=== PATIENT | male | born 1960 | race Two or more races ===

== ENCOUNTER 2020-04-04 10:37 | Inpatient (IN) | payer OTHER ==
--- NOTE | 2020-04-04 14:19 | BHS.RME ---
Substance Use & Tx History - Substance Use History Heroin Substance amount: 10 bags Frequency of use: Daily Substance route: Inhalation (ex: sniffing or snorting) Date of Last Use: 04/03/20 Marijuana/Hashish Substance amount: 1/2 pack Frequency of use: Daily Substance route: Smoking Date of Last Use: 04/04/20 Nicotine Substance amount: 1/2 pack Frequency of use: Daily Substance route: Smoking Date of Last Use: 04/04/20 Physical/Psych/Mental Status - Behavior General Behavior: Increased activity (restlessness, agitation) Eye Contact: Normal - Cooperativeness Cooperativeness: Cooperative - Thinking Thought Processes: Tight, Logical, Goal Directed - Physical Health Problems Is patient presently having any pain?: No Does patient presently have any injuries (include location): No Does patient currently have a fever: No Is patient : No COWS - Scale Resting Pulse: 1= [place] 81-100 Sweatin= Chills/Flushing Restless Observation: 1= Difficult to Sit Still Pupil Size: 1= Pupils >than Normal Bone or Joint Aches: 1= Mild Discomfort Runny Nose/ Eye Tearin= Nasal Congestion GI Upset > 30mins: 2= Nausea/Diarrhea Tremor Observation: 2= Slight Tremor Visible Yawning Observation: 1= 1-2x During Session Anxiety or Irritability: 1=Feels Anxious/Irritable Goose Flesh Skin: 3=Piloerection COWS Score: 15
--- NOTE | 2020-04-04 16:46 | HP ---
COWS - Scale Resting Pulse: 1= [place] 81-100 Sweatin= Chills/Flushing Restless Observation: 1= Difficult to Sit Still Pupil Size: 1= Pupils >than Normal Bone or Joint Aches: 1= Mild Discomfort Runny Nose/ Eye Tearin= Nasal Congestion GI Upset > 30mins: 1= Stomach Cramp Tremor Observation: 2= Slight Tremor Visible Yawning Observation: 1= 1-2x During Session Anxiety or Irritability: 2=Irritable/Anxious Goose Flesh Skin: 3=Piloerection COWS Score: 15 CIWA Score - Admission Criteria [facility]ASAS Guidelines: Admission for Medically Managed Detox: Requires at least one of the followin. CIWA greater than 12 2. Seizures within the past 24 hours 3. Delirium tremens within the past 24 hours 4. Hallucinations within the past 24 hours 5. Acute intervention needed for co occurring medical disorder 6. Acute intervention needed for co occurring psychiatric disorder 7. Severe withdrawal that cannot be handled at a lower level of care (continued vomiting, continued diarrhea, abnormal vital signs) requiring intravenous medication and/or fluids 8. Admission ROS [facility] Chief Complaint: Seeking admission to detox from heroin Allergies/Adverse Reactions: Allergies Allergy/AdvReac Type Severity Reaction Status Date / Time No Known Allergies Allergy Verified 04/04/20 16:38 History of Present Illness: 59 years old male with 18 years of heroin dependence is seeking admission to detox. This is his first admission to [facility], his last admission was at [facility]. He reports that that he relapsed six months post discharge. He has medical history of hypertension, hyperlipidemia and psych. history of bipolar disorder, depression and hypertension. He reports suicide attempt at age 37 years and denies suicidal ideation at this time. He uses 10 bags of heroine daily from age 37 years and he smokes 10 cigarettes daily. He denies blackouts or overdose. He is unemployed, lives alone in the [place] and denies legal issues. Exam Limitations: No Limitations - Ebola screening Have you traveled outside of the country in the last 21 days: No Have you had contact with anyone from an Ebola affected area: No Have you been sick,other than usual withdrawal symptoms: No Do you have a fever: No - Review of Systems Constitutional: Chills, Malaise, Night Sweats, Changes in sleep EENT: reports: No Symptoms Reported Respiratory: reports: No Symptoms reported Cardiac: reports: No Symptoms Reported GI: reports: Poor Appetite, Poor Fluid Intake, Abdominal cramping : reports: No Symptoms Reported Musculoskeletal: reports: Back Pain Integumentary: reports: Dryness, Flushing Neuro: reports: Tremors Endocrine: reports: No Symptoms Reported Hematology: reports: No Symptoms Reported Psychiatric: reports: Mood/Affect Appropiate, Orientated x3, Anxious, Depressed Other Systems: Reviewed and Negative Patient History - Patient Medical History Hx Anemia: No Hx Asthma: No Hx Chronic Obstructive Pulmonary Disease (COPD): No Hx Cancer: No Hx Cardiac Disorders: Yes (CAD) Hx Hypertension: Yes Hx Hypercholesterolemia: Yes Hx Pacemaker: No HX Cerebrovascular Accident: No Hx Seizures: No Hx Dementia: No Hx Diabetes: No Hx Gastrointestinal Disorders: No Hx Liver Disease: No Hx Genitourinary Disorders: No Hx Sexually Transmitted Disorders: No Hx Renal Disease (ESRD): No Hx Thyroid Disease: No Hx Human Immunodeficiency Virus (HIV): No (Negative 2017) Hx Hepatitis C: No Hx Depression: Yes (+ Anxiety ) Hx Suicide Attempt: No (Denies suicidal ideation) Hx Bipolar Disorder: Yes Hx Schizophrenia: No - Patient Surgical History Past Surgical History: No - PPD History Previous Implant?: Yes Documented Results: Negative w/o proof Implanted On Prior [facility] Admission?: No PPD to be Administered?: Yes - Reproductive History Patient is a Female of Child Bearing Age (11 -55 yrs old): No (Male) - Smoking Cessation Smoking history: Current every day smoker Have you smoked in the past 12 months: Yes Aproximately how many cigarettes per day: 10 Hx Chewing Tobacco Use: No Initiated information on smoking cessation: Yes 'Breaking Loose' booklet given: 04/04/20 - Substance & Tx. History Hx Alcohol Use: No Hx Substance Use: Yes Substance Use Type: Cocaine, Heroin, Opiates Hx Substance Use Treatment: Yes ([facility], [facility]) - Substances abused Heroin Substance route: Inhalation Frequency: Daily Amount used: 10 bags Age of first use: 37 Date of last use: 04/03/20 Cocaine Substance route: Inhalation Frequency: Daily Amount used: 1 joint Age of first use: 33 Date of last use: 04/03/20 Admission Physical Exam BHS - Physical General Appearance: Yes: Within Normal Limits HEENTM: Yes: Within Normal Limits Respiratory: Yes: Lungs Clear, Normal Breath Sounds, No Respiratory Distress Neck: Yes: Within Normal Limits Breast: Yes: Breast Exam Deferred Cardiology: Yes: Within Normal Limits Abdominal: Yes: Normal Bowel Sounds Genitourinary: Yes: Within Normal Limits Back: Yes: Normal Inspection Musculoskeletal: Yes: Within Normal Limits Extremities: Yes: Tremors Neurological: Yes: Normal Mood/Affect Integumentary: Yes: Within Normal Limits Lymphatic: Yes: Within Normal Limits - Diagnostic (1) Opioid dependence with withdrawal Current Visit: Yes Status: Acute (2) Hypertension Current Visit: Yes Status: Chronic Qualifiers: Hypertension type: essential hypertension Qualified Code(s): I10 - Essential (primary) hypertension (3) Hyperlipidemia Current Visit: Yes Status: Chronic (4) Nicotine dependence Current Visit: Yes Status: Chronic (5) Depression Current Visit: Yes Status: Chronic (6) Anxiety Current Visit: Yes Status: Chronic (7) Bipolar disorder Current Visit: Yes Status: Chronic Cleared for Admission S - Detox or Rehab [facility] Level of Care: Medically Managed Detox Regimen/Protocol: Methadone Claeared for Rehab Admission: No Inpatient Rehab Admission - Rehab Decision to Admit Inpatient rehab admission?: No
[2020-04-04] MEDS ORDERED: NICOTINE POLACRILEX 2 MG GUM BUC PRN (16:54)
[2020-04-04] MEDS ORDERED: MAGNESIUM HYDROX 2400MG/30ML ORAL SUSPENSION 30 ML CUP PO PRN (16:54)
[2020-04-04] MEDS ORDERED: ONDANSETRON *ODT* 4 MG TABLET SL PRN (16:54)
[2020-04-04] MEDS ORDERED: MAGNESIUM CITRATE 300 ML BOTTLE PO PRN (16:54)
[2020-04-04] MEDS ORDERED: ACETAMINOPHEN 325 MG TABLET (FP) PO PRN ×2 (16:54)
[2020-04-04] MEDS ORDERED: BISMUTH SUBSALICYLATE 524 MG/30 ML UD PO PRN (16:54)
[2020-04-04] MEDS ORDERED: METHOCARBAMOL 500 MG TABLET PO PRN (16:54)
[2020-04-04] MEDS ORDERED: MAG HYDROX/AL HYDROX/SIMETH 30 ML UNIT-DOSE CUP PO PRN (16:54)
[2020-04-04] MEDS ORDERED: IBUPROFEN 400 MG TABLET (FP) PO PRN (16:54)
[2020-04-04] MEDS ORDERED: MENTHOL/PHENOL 1 EACH UD MM PRN (16:54)
[2020-04-04 17:00] VITALS: BMI 24.4
[2020-04-04] MEDS ORDERED: METHADONE HCL 10 MG TABLET (FOR DETOX USE ONLY) PO ONE (18:15)
[2020-04-04] MEDS: cloNIDine HCL 0.1 MG TABLET PO PRN (19:14)
[2020-04-04] MEDS: MELATONIN 5 MG TABLETS PO SCH (23:19)
[2020-04-04] MEDS: THIAMINE HCL 100 MG TABLET (FP) PO SCH (23:19)
[2020-04-05] MEDS: cloNIDine HCL 0.1 MG TABLET PO PRN (07:38)
[2020-04-05] MEDS ORDERED: METHADONE HCL 10 MG TABLET (FOR DETOX USE ONLY) ONE (09:42)
[2020-04-05] MEDS ORDERED: METHADONE HCL 5 MG TABLET (FOR DETOX USE ONLY) ONE (09:42)
[2020-04-05] MEDS ORDERED: METHADONE (DETOX) 20 MG, METHADONE (DETOX) 5 MG PO ONE (10:00)
[2020-04-05] MEDS: NICOTINE 14 MG/24 HOURS TOPICAL PATCH TD SCH (10:45)
[2020-04-05] MEDS: PRENATAL VITAMINS W/ FOLIC ACID TABLET (FP) PO SCH (10:46)
[2020-04-05] MEDS: LISINOPRIL 5 MG TABLET (FP) PO SCH (10:46)
[2020-04-05] MEDS: FUROSEMIDE 20 MG TABLET (FP) PO SCH (10:46)
[2020-04-05] MEDS: CARVEDILOL 6.25 MG TABLET (FP) PO SCH ×2 (10:46→22:34)
--- NOTE | 2020-04-05 11:44 | PN ---
BHS COWS - Scale Resting Pulse: 0= [place] 80 or Below Sweatin= Chills/Flushing Restless Observation: 1= Difficult to Sit Still Pupil Size: 0= Normal to Room Light Bone or Joint Aches: 1= Mild Discomfort Runny Nose/ Eye Tearin= Nasal Congestion GI Upset > 30mins: 1= Stomach Cramp Tremor Observation of Outstretched Hands: 1= Tremor [place], Not Seen Yawning Observation: 1= 1-2x During Session Anxiety or Irritability: 1=Feels Anxious/Irritable Goose Flesh Skin: 0=Smooth Skin COWS Score: 8 BHS Progress Note (SOAP) Subjective: sweats shakes restless interrupted sleep Objective: 04/05/20 11:42 Vital Signs Temperature 97.8 F 04/05/20 05:45 Pulse Rate 50 L 04/05/20 05:45 Respiratory Rate 20 04/05/20 05:45 Blood Pressure 180/93 H 04/05/20 05:45 O2 Sat by Pulse Oximetry (%) 99 04/05/20 05:45 labs pending aaox3 ambulating no acute distress elevated BP noted; HTN were ordered for him Assessment: 04/05/20 11:43 withdrawals Plan: continue detox monitor BP after pt takes his HTN medication
[2020-04-05 11:58] LABS: HEMATOCRIT 40.6 % (35.4-49); HEMOGLOBIN 13.6 GM/dL (11.7-16.9); MCH 30.4 pg (25.7-33.7); MCHC 33.4 g/dl (32.0-35.9); MEAN CELL VOLUME 91.1 fl (80-96); MEAN PLT VOLUME 9.9 fl (7.5-11.1); PLATELET COUNT 233 K/MM3 (134-434); RBC 4.46 M/mm3 (4.00-5.60); RDW 14.3 % (11.9-15.9)
[2020-04-05 12:12] LABS: ALBUMIN 3.4 g/dl (3.4-5.0); BILIRUBIN,TOTAL 0.3 mg/dL (0.2-1); BLOOD UREA NITROGEN 12.8 mg/dL (7-18); CALCIUM 9.1 mg/dL (8.5-10.1); CREATININE 0.9 mg/dL (0.55-1.3); POTASSIUM 3.9 mmol/L (3.5-5.1); TOT PROT 7.1 g/dl (6.4-8.2)
[2020-04-05] MEDS ORDERED: diazePAM 5 MG TABLET PO PRN (14:24)
--- NOTE | 2020-04-05 14:56 | EKG ---
Test Reason : Blood Pressure : / mmHG Vent. Rate : 060 BPM Atrial Rate : 060 BPM P-R Int : 168 ms QRS Dur : 084 ms QT Int : 504 ms P-R-T Axes : 043 003 -31 degrees QTc Int : 504 ms NORMAL SINUS RHYTHM MINIMAL VOLTAGE CRITERIA FOR LVH, MAY BE NORMAL VARIANT T WAVE ABNORMALITY, CONSIDER INFERIOR ISCHEMIA PROLONGED QT ABNORMAL ECG NO PREVIOUS ECGS AVAILABLE Confirmed by DHEERAJ DELCID, LEXIS ([id number]) on 04/05/2020 2:56:36 PM Referred By: Confirmed By:LEXIS ESQUEDA MD
--- NOTE | 2020-04-05 14:56 | EKG ---
Test Reason : Blood Pressure : / mmHG Vent. Rate : 048 BPM Atrial Rate : 048 BPM P-R Int : 170 ms QRS Dur : 086 ms QT Int : 560 ms P-R-T Axes : 061 011 -74 degrees QTc Int : 500 ms SINUS BRADYCARDIA POSSIBLE LEFT ATRIAL ENLARGEMENT LEFT VENTRICULAR HYPERTROPHY T WAVE ABNORMALITY, CONSIDER INFEROLATERAL ISCHEMIA PROLONGED QT ABNORMAL ECG WHEN COMPARED WITH ECG OF 04-APR-2020 17:05, NO SIGNIFICANT CHANGE WAS FOUND Confirmed by DHEERAJ DELCID, LEXIS ([id number]) on 04/05/2020 2:56:10 PM Referred By: Confirmed By:LEXIS ESQUEDA MD
[2020-04-05] MEDS: MELATONIN 5 MG TABLETS PO SCH (22:33)
[2020-04-05] MEDS: THIAMINE HCL 100 MG TABLET (FP) PO SCH (22:33)
[2020-04-06] MEDS ORDERED: cloNIDine HCL 0.1 MG TABLET PO ONE (06:56)
--- NOTE | 2020-04-06 07:00 | PN ---
[facility] Progress Note Note: Patient's blood pressure this morning is B/P 194/106. Patient is asymptomatic Vital Signs Temperature 97.1 F L 04/06/20 05:35 Pulse Rate 53 L 04/06/20 05:35 Respiratory Rate 16 04/06/20 05:35 Blood Pressure 194/106 H 04/06/20 05:35 O2 Sat by Pulse Oximetry (%) 98 04/06/20 05:35 Laboratory Last Values WBC 5.0 K/mm3 (4.0-10.0) 04/05/20 08:05 RBC 4.46 M/mm3 (4.00-5.60) 04/05/20 08:05 Hgb 13.6 GM/dL (11.7-16.9) 04/05/20 08:05 Hct 40.6 % (35.4-49) 04/05/20 08:05 MCV 91.1 fl (80-96) 04/05/20 08:05 MCH 30.4 pg (25.7-33.7) 04/05/20 08:05 MCHC 33.4 g/dl (32.0-35.9) 04/05/20 08:05 RDW 14.3 % (11.9-15.9) 04/05/20 08:05 Plt Count 233 K/MM3 (134-434) 04/05/20 08:05 MPV 9.9 fl (7.5-11.1) 04/05/20 08:05 Sodium 139 mmol/L (136-145) 04/05/20 08:05 Potassium 3.9 mmol/L (3.5-5.1) 04/05/20 08:05 Chloride 106 mmol/L (98-107) 04/05/20 08:05 Carbon Dioxide 28 mmol/L (21-32) 04/05/20 08:05 Anion Gap 5 MMOL/L (8-16) L 04/05/20 08:05 BUN 12.8 mg/dL (7-18) 04/05/20 08:05 Creatinine 0.9 mg/dL (0.55-1.3) 04/05/20 08:05 Est GFR (CKD-EPI)AfAm 108.73 04/05/20 08:05 Est GFR (CKD-EPI)NonAf 93.82 04/05/20 08:05 Random Glucose 99 mg/dL (74-106) 04/05/20 08:05 Calcium 9.1 mg/dL (8.5-10.1) 04/05/20 08:05 Total Bilirubin 0.3 mg/dL (0.2-1) 04/05/20 08:05 AST 21 U/L (15-37) 04/05/20 08:05 ALT 20 U/L (13-61) 04/05/20 08:05 Alkaline Phosphatase 93 U/L (45-117) 04/05/20 08:05 Total Protein 7.1 g/dl (6.4-8.2) 04/05/20 08:05 Albumin 3.4 g/dl (3.4-5.0) 04/05/20 08:05 Action: Clonidine 0.1mg tablet oral ordered
[2020-04-06] MEDS ORDERED: METHADONE HCL 10 MG TABLET (FOR DETOX USE ONLY) PO ONE (10:00)
[2020-04-06] MEDS: NICOTINE 14 MG/24 HOURS TOPICAL PATCH TD SCH (10:18)
[2020-04-06] MEDS: CARVEDILOL 6.25 MG TABLET (FP) PO SCH ×2 (10:18→22:11)
[2020-04-06] MEDS: LISINOPRIL 5 MG TABLET (FP) PO SCH (10:18)
[2020-04-06] MEDS: PRENATAL VITAMINS W/ FOLIC ACID TABLET (FP) PO SCH (10:18)
[2020-04-06] MEDS: FUROSEMIDE 20 MG TABLET (FP) PO SCH (10:19)
--- NOTE | 2020-04-06 10:48 | PN ---
BHS COWS - Scale Resting Pulse: 0= [place] 80 or Below Sweatin= Chills/Flushing Restless Observation: 1= Difficult to Sit Still Pupil Size: 0= Normal to Room Light Bone or Joint Aches: 0= None Runny Nose/ Eye Tearin= None GI Upset > 30mins: 1= Stomach Cramp Tremor Observation of Outstretched Hands: 1= Tremor [place], Not Seen Yawning Observation: 1= 1-2x During Session Anxiety or Irritability: 1=Feels Anxious/Irritable Goose Flesh Skin: 0=Smooth Skin COWS Score: 6 BHS Progress Note (SOAP) Subjective: sweats body aches Objective: 04/06/20 10:48 Vital Signs Temperature 97.1 F L 04/06/20 05:35 Pulse Rate 52 L 04/06/20 08:13 Respiratory Rate 16 04/06/20 05:35 Blood Pressure 149/94 04/06/20 08:13 O2 Sat by Pulse Oximetry (%) 98 04/06/20 05:35 Laboratory Tests 04/04/20 04/05/20 04/05/20 17:45 08:05 08:05 WBC 5.0 RBC 4.46 Hgb 13.6 Hct 40.6 MCV 91.1 MCH 30.4 MCHC 33.4 RDW 14.3 Plt Count 233 MPV 9.9 Sodium 139 Potassium 3.9 Chloride 106 Carbon Dioxide 28 Anion Gap 5 L BUN 12.8 Creatinine 0.9 Est GFR (CKD-EPI)AfAm 108.73 Est GFR (CKD-EPI)NonAf 93.82 Random Glucose 99 Calcium 9.1 Total Bilirubin 0.3 AST 21 ALT 20 Alkaline Phosphatase 93 Total Protein 7.1 Albumin 3.4 COVID-19 (JASON) Not detected aaox3 ambulating no acute distress Assessment: 04/06/20 10:48 withdrawals Plan: continue detox
[2020-04-06] MEDS: THIAMINE HCL 100 MG TABLET (FP) PO SCH (22:11)
[2020-04-06] MEDS: MELATONIN 5 MG TABLETS PO SCH (22:11)
[2020-04-07] MEDS ORDERED: METHADONE HCL 10 MG TABLET (FOR DETOX USE ONLY) ONE (09:09)
[2020-04-07] MEDS ORDERED: METHADONE HCL 5 MG TABLET (FOR DETOX USE ONLY) ONE (09:09)
[2020-04-07] MEDS ORDERED: METHADONE (DETOX) 10 MG, METHADONE (DETOX) 5 MG PO ONE (10:00)
[2020-04-07] MEDS: FUROSEMIDE 20 MG TABLET (FP) PO SCH (10:33)
[2020-04-07] MEDS: LISINOPRIL 5 MG TABLET (FP) PO SCH (10:33)
[2020-04-07] MEDS: CARVEDILOL 6.25 MG TABLET (FP) PO SCH ×2 (10:33→22:21)
[2020-04-07] MEDS: NICOTINE 14 MG/24 HOURS TOPICAL PATCH TD SCH (10:35)
[2020-04-07] MEDS: PRENATAL VITAMINS W/ FOLIC ACID TABLET (FP) PO SCH (10:35)
--- NOTE | 2020-04-07 12:32 | PN ---
BHS COWS - Scale Resting Pulse: 0= [place] 80 or Below Sweatin= Chills/Flushing Restless Observation: 1= Difficult to Sit Still Pupil Size: 0= Normal to Room Light Bone or Joint Aches: 1= Mild Discomfort Runny Nose/ Eye Tearin= None GI Upset > 30mins: 0= None Tremor Observation of Outstretched Hands: 2= Slight Tremor Visible Yawning Observation: 0= None Anxiety or Irritability: 1=Feels Anxious/Irritable Goose Flesh Skin: 0=Smooth Skin COWS Score: 6 BHS Progress Note (SOAP) Subjective: Complaints tremors, sweats, anxiety, chills and irritability. Objective: 04/07/20 12:29 Vital Signs 04/07/20 04/07/20 04/07/20 05:40 09:42 11:42 Temperature 97.3 F L 97.1 F L Pulse Rate 53 L 56 L Respiratory 20 18 Rate Blood Pressure 185/97 H 141/62 O2 Sat by Pulse 100 100 Oximetry (%) Laboratory Last Values WBC 5.0 K/mm3 (4.0-10.0) 04/05/20 08:05 RBC 4.46 M/mm3 (4.00-5.60) 04/05/20 08:05 Hgb 13.6 GM/dL (11.7-16.9) 04/05/20 08:05 Hct 40.6 % (35.4-49) 04/05/20 08:05 MCV 91.1 fl (80-96) 04/05/20 08:05 MCH 30.4 pg (25.7-33.7) 04/05/20 08:05 MCHC 33.4 g/dl (32.0-35.9) 04/05/20 08:05 RDW 14.3 % (11.9-15.9) 04/05/20 08:05 Plt Count 233 K/MM3 (134-434) 04/05/20 08:05 MPV 9.9 fl (7.5-11.1) 04/05/20 08:05 Sodium 139 mmol/L (136-145) 04/05/20 08:05 Potassium 3.9 mmol/L (3.5-5.1) 04/05/20 08:05 Chloride 106 mmol/L (98-107) 04/05/20 08:05 Carbon Dioxide 28 mmol/L (21-32) 04/05/20 08:05 Anion Gap 5 MMOL/L (8-16) L 04/05/20 08:05 BUN 12.8 mg/dL (7-18) 04/05/20 08:05 Creatinine 0.9 mg/dL (0.55-1.3) 04/05/20 08:05 Est GFR (CKD-EPI)AfAm 108.73 04/05/20 08:05 Est GFR (CKD-EPI)NonAf 93.82 04/05/20 08:05 Random Glucose 99 mg/dL (74-106) 04/05/20 08:05 Calcium 9.1 mg/dL (8.5-10.1) 04/05/20 08:05 Total Bilirubin 0.3 mg/dL (0.2-1) 04/05/20 08:05 AST 21 U/L (15-37) 04/05/20 08:05 ALT 20 U/L (13-61) 04/05/20 08:05 Alkaline Phosphatase 93 U/L (45-117) 04/05/20 08:05 Total Protein 7.1 g/dl (6.4-8.2) 04/05/20 08:05 Albumin 3.4 g/dl (3.4-5.0) 04/05/20 08:05 Syphilis Serology Reactive (NONREACTIVE) A* 04/06/20 07:30 RPR Titer Reactive 1:1 (NONREACTIVE) H 04/06/20 07:30 COVID-19 (JASON) Not detected (Not Detected) 04/04/20 17:45 Labs noted. Assessment: 04/07/20 12:31 Alert and oriented x3, in no acute respiratory distress. Full ROM, ambulating in hallway with assistance. Skin warm to touch with no lesions noted. Withdrawal symptoms. Plan: Continue detox protocol.
[2020-04-07] MEDS: THIAMINE HCL 100 MG TABLET (FP) PO SCH (22:21)
[2020-04-07] MEDS: MELATONIN 5 MG TABLETS PO SCH (22:21)
[2020-04-08] MEDS: FUROSEMIDE 20 MG TABLET (FP) PO SCH (09:50)
[2020-04-08] MEDS: LISINOPRIL 5 MG TABLET (FP) PO SCH (09:50)
[2020-04-08] MEDS: CARVEDILOL 6.25 MG TABLET (FP) PO SCH ×2 (09:50→22:01)
[2020-04-08] MEDS ORDERED: METHADONE HCL 10 MG TABLET (FOR DETOX USE ONLY) PO ONE (10:00)
[2020-04-08] MEDS ORDERED: LISINOPRIL 5 MG TABLET (FP) PO SCH (10:18)
[2020-04-08] MEDS: NICOTINE 14 MG/24 HOURS TOPICAL PATCH TD SCH (10:31)
[2020-04-08] MEDS: PRENATAL VITAMINS W/ FOLIC ACID TABLET (FP) PO SCH (10:31)
[2020-04-08] MEDS ORDERED: cloNIDine HCL 0.1 MG TABLET PO ONE (13:00)
--- NOTE | 2020-04-08 14:40 | PN ---
BHS COWS - Scale Resting Pulse: 0= [place] 80 or Below Sweatin=Flushed/Facial Moisture Restless Observation: 1= Difficult to Sit Still Pupil Size: 0= Normal to Room Light Bone or Joint Aches: 1= Mild Discomfort Runny Nose/ Eye Tearin= None GI Upset > 30mins: 0= None Tremor Observation of Outstretched Hands: 2= Slight Tremor Visible Yawning Observation: 0= None Anxiety or Irritability: 2=Irritable/Anxious Goose Flesh Skin: 0=Smooth Skin COWS Score: 8 BHS Progress Note (SOAP) Subjective: OPIOD WITHDRAWAL SX PATIENT C/O HEADACHE, ELEVATED BP, SWEATS, MILD SHAKES AND BODY ACHES Objective: 04/08/20 14:37 Vital Signs Temperature 98.2 F 04/08/20 09:33 Pulse Rate 57 L 04/08/20 09:33 Respiratory Rate 18 04/08/20 09:33 Blood Pressure 143/77 04/08/20 14:01 O2 Sat by Pulse Oximetry (%) 100 04/08/20 05:46 Laboratory Tests 04/04/20 04/05/20 04/05/20 17:45 08:05 08:05 WBC 5.0 RBC 4.46 Hgb 13.6 Hct 40.6 MCV 91.1 MCH 30.4 MCHC 33.4 RDW 14.3 Plt Count 233 MPV 9.9 Sodium 139 Potassium 3.9 Chloride 106 Carbon Dioxide 28 Anion Gap 5 L BUN 12.8 Creatinine 0.9 Est GFR (CKD-EPI)AfAm 108.73 Est GFR (CKD-EPI)NonAf 93.82 Random Glucose 99 Calcium 9.1 Total Bilirubin 0.3 AST 21 ALT 20 Alkaline Phosphatase 93 Total Protein 7.1 Albumin 3.4 Syphilis Serology RPR Titer COVID-19 (JASON) Not detected 04/06/20 04/06/20 07:30 07:30 WBC RBC Hgb Hct MCV MCH MCHC RDW Plt Count MPV Sodium Potassium Chloride Carbon Dioxide Anion Gap BUN Creatinine Est GFR (CKD-EPI)AfAm Est GFR (CKD-EPI)NonAf Random Glucose Calcium Total Bilirubin AST ALT Alkaline Phosphatase Total Protein Albumin Syphilis Serology Reactive A* RPR Titer Reactive 1:1 H COVID-19 (JASON) PE ALERT AND ORIENTED X 3 SKIN WARM, MILD FACIAL MOISTURE NECK SUPPLE NO JVD CN 1-X11 GROSSLY INTACT EXT FULL ROM, MILD TREMORS EXAM LIMITED DUE TO IRRITABILITY TOWARDS PROVIDER Assessment: 04/08/20 14:39 ELEVATED BP OPIOD WITHDRAWAL SX Plan: PATIENT INCREASED LISINOPRIL TO 10MG DAILY CLONIDINE 0.2MG X ONE ORDERED CONTINUE DETOX D/C IN AM-HAS MEDS IN PROPERTY BELONGINGS
[2020-04-08] MEDS: THIAMINE HCL 100 MG TABLET (FP) PO SCH (22:01)
[2020-04-08] MEDS: MELATONIN 5 MG TABLETS PO SCH (22:01)
[2020-04-09] MEDS ORDERED: METHADONE HCL 5 MG TABLET (FOR DETOX USE ONLY) PO ONE (06:00)
[2020-04-09 06:23] VITALS: BP 179/79; PULSE 56; TEMP 97.3
[2020-04-09] MEDS: FUROSEMIDE 20 MG TABLET (FP) PO SCH (09:05)
[2020-04-09] MEDS: CARVEDILOL 6.25 MG TABLET (FP) PO SCH (09:05)
[2020-04-09] MEDS: NICOTINE 14 MG/24 HOURS TOPICAL PATCH TD SCH (09:07)
[2020-04-09] MEDS: PRENATAL VITAMINS W/ FOLIC ACID TABLET (FP) PO SCH (09:09)
--- NOTE | 2020-04-09 11:21 | DS ---
[facility] Detox Discharge Summary Admission Date: 04/04/20 Discharge Date: 04/09/20 - History Present History: Opioid Dependence - Physical Exam Results Vital Signs: Vital Signs Temperature 97.3 F L 04/09/20 05:09 Pulse Rate 56 L 04/09/20 05:09 Respiratory Rate 04/09/20 05:09 Blood Pressure 179/79 H 04/09/20 05:09 O2 Sat by Pulse Oximetry (%) 100 04/09/20 05:09 Pertinent Admission Physical Exam Findings: Vital Signs Temperature 97.3 F L 04/09/20 05:09 Pulse Rate 56 L 04/09/20 05:09 Respiratory Rate 04/09/20 05:09 Blood Pressure 179/79 H 04/09/20 05:09 O2 Sat by Pulse Oximetry (%) 100 04/09/20 05:09 Laboratory Tests 04/04/20 04/05/20 04/05/20 17:45 08:05 08:05 WBC 5.0 RBC 4.46 Hgb 13.6 Hct 40.6 MCV 91.1 MCH 30.4 MCHC 33.4 RDW 14.3 Plt Count 233 MPV 9.9 Sodium 139 Potassium 3.9 Chloride 106 Carbon Dioxide 28 Anion Gap 5 L BUN 12.8 Creatinine 0.9 Est GFR (CKD-EPI)AfAm 108.73 Est GFR (CKD-EPI)NonAf 93.82 Random Glucose 99 Calcium 9.1 Total Bilirubin 0.3 AST 21 ALT 20 Alkaline Phosphatase 93 Total Protein 7.1 Albumin 3.4 Syphilis Serology RPR Titer COVID-19 (JASON) Not detected 04/06/20 04/06/20 07:30 07:30 WBC RBC Hgb Hct MCV MCH MCHC RDW Plt Count MPV Sodium Potassium Chloride Carbon Dioxide Anion Gap BUN Creatinine Est GFR (CKD-EPI)AfAm Est GFR (CKD-EPI)NonAf Random Glucose Calcium Total Bilirubin AST ALT Alkaline Phosphatase Total Protein Albumin Syphilis Serology Reactive A* RPR Titer Reactive 1:1 H COVID-19 (JASON) aaox3 ambulating no acute distress lungs CTA - Treatment Hospital Course: Detox Protocol Followed, Detoxed Safely, Responded well, Discharged Condition Good, Rehab Referral Accepted - Medication Discharge Medications: Ambulatory Orders Carvedilol [Coreg -] 6.25 mg PO BID 04/04/20 Furosemide [Lasix] 20 mg PO DAILY 04/04/20 Lisinopril [Prinivil -] 5 mg PO DAILY 04/04/20 - Diagnosis (1) Opioid dependence with withdrawal Status: Chronic (2) Anxiety Status: Chronic (3) Bipolar disorder Status: Chronic (4) Depression Status: Chronic (5) Hyperlipidemia Status: Chronic (6) Hypertension Status: Chronic Qualifiers: Hypertension type: essential hypertension Qualified Code(s): I10 - Essential (primary) hypertension (7) Nicotine dependence Status: Chronic - AMA Did Patient Leave Against Medical Advice: No
== END 2020-04-09 10:02 | disposition home or self-care (01) | DRG 773 ==
LOC: YASAS 10:37 → Y6N 17:34
PROVIDERS: ADMIT Allergy & Immunology; ATTEND Allergy & Immunology
PROC: HZ2ZZZZ Detoxification Services for Substance Abuse Treatment (ICD-10-PCS; principal; 2020-04-04)
DX: F11.23 Opioid dependence with withdrawal (principal); F17.210 Nicotine dependence, cigarettes, uncomplicated; F41.9 Anxiety disorder, unspecified; F31.9 Bipolar disorder, unspecified; I10 Essential (primary) hypertension; E78.5 Hyperlipidemia, unspecified; I25.10 Atherosclerotic heart disease of native coronary artery without angina pectoris; Z56.0 Unemployment, unspecified
CPT/HCPCS: 36415; 80053; 85027; 86593; 86780; 93005; 93010; J0735; U0003